=== PATIENT | female | born 1955 ===

== ENCOUNTER 2018-09-16 16:24 | Emergency (ER) | payer OTHER ==
--- NOTE | 2018-09-16 18:36 | UC ---
Abdominal Pain Female HPI - HPI Summary HPI Summary: 3 days of sharp right sided/right upper quadrant pain. Worse with movement and when taking a deep breath. No fever. No nausea. No diarrhea or urinary symptoms. Pain got worse today. - History of Current Complaint Chief Complaint: UCGeneralIllness Stated Complaint: SIDE PAIN Time Seen by Provider: 09/16/18 17:00 Hx Obtained From: Patient Hx Last Menstrual Period: post Onset/Duration: Sudden Onset, Lasting Days, Still Present Timing: Constant Severity Initially: Moderate Severity Currently: Moderate Pain Intensity: 5 Pain Scale Used: 0-10 Numeric Location: Discrete At: RUQ Radiates: Yes Radiates to: Flank Character: Colicy, Sharp Aggravating Factor(s): Movement, Deep Breaths Alleviating Factor(s): Nothing Associated Signs and Symptoms: Negative: Diaphoresis, Fever, Constipation, Blood in Stool, Urinary Symptoms, Decreased Appetite, Vaginal Bleeding, Vaginal Discharge, Nausea, Vomiting, Diarrhea Allergies/Adverse Reactions: Allergies Allergy/AdvReac Type Severity Reaction Status Date / Time No Known Allergies Allergy Verified 09/16/18 16:40 PMH/Surg Hx/FS Hx/Imm Hx Endocrine History: Hyperthyroidism - Surgical History Surgical History: Yes Surgery Procedure, Year, and Place: APPENDECTOMY - Family History Known Family History: Positive: Non-Contributory - Social History Alcohol Use: Daily Substance Use Type: None Smoking Status (MU): Never Smoked Tobacco Review of Systems All Other Systems Reviewed And Are Negative: Yes Constitutional: Positive: Negative Skin: Positive: Negative Respiratory: Positive: Negative Cardiovascular: Positive: Negative Gastrointestinal: Positive: Abdominal Pain Genitourinary: Positive: Negative Physical Exam Triage Information Reviewed: Yes Appearance: Well-Appearing, No Pain Distress, Well-Nourished Vital Signs: Initial Vital Signs Temp 98.6 F 09/16/18 16:35 Pulse 75 09/16/18 16:35 Resp 16 09/16/18 16:35 BP 132/79 09/16/18 16:35 Pulse Ox 100 09/16/18 16:35 Laboratory Tests 09/16/18 17:06 POC Urine Color Yellow POC Urine Clarity Clear POC Urine pH 5.5 POC Ur Specif [place] 1.010 POC Urine Protein Negative POC Ur Glucose (UA) Negative POC Urine Ketones Negative POC Urine Blood Negative POC Urine Nitrite Negative POC Urine Bilirubin Negative POC Urine Urobilinogen 0.2 POC U Leukocyte Esteras Negative Vital Signs Reviewed: Yes Eyes: Positive: Conjunctiva Clear ENT: Positive: Hearing grossly normal Neck: Positive: Supple Respiratory Exam: Normal Cardiovascular Exam: Normal Abdomen Description: Positive: Soft, CVA Tenderness (R) - EQUIVOCAL, Other: - MILDLY TENDER RUQ. NO REBOUND OR RIGIDITY. NEG BERRY'S. Negative: CVA Tenderness (L), Distended, Guarding Bowel Sounds: Positive: Present Musculoskeletal: Positive: No Edema Neurological: Positive: Alert Psychological: Positive: Normal Response To Family, Age Appropriate Behavior Skin: Negative: Rashes Diagnostics - Radiology CT ABD/PELVIS W/O CONTRAST Radiology Interpretation Completed By: Radiologist Summary of Radiographic Findings: NO EVIDENCE FOR ACUTE FINDING OR CAUSE FOR THE PATIENT'S ABDOMINAL PAIN IS SEEN. RIGHT KIDNEY IN PTOTIC POSITION. Abd Pain Female Course/Dx - Course Course Of Treatment: CT SCAN TODAY DOES NOT SHOW ANY DEFINITE CAUSE FOR PT'S ABDOMINAL PAIN HOWEVER THE RIGHT KIDNEY IS IN PTOTIC POSITION. PATIENT ADVISED THIS MAY OR MAY NOT BE CONTRIBUTING TO HER SYMPTOMS HOWEVER IT IS CERTAINLY A POSSIBILITY. SHE WILL FOLLOW-UP WITH UROLOGY FOR FURTHER EVALUATION OF THIS CONDITION. TO THE ER IF SYMPTOMS WORSEN. CBC AND CMP DRAWN TODAY. - Differential Dx/Diagnosis Provider Diagnosis: Nephroptosis Discharge - Sign-Out/Discharge Documenting (check all that apply): Patient Departure All imaging exams completed and their final reports reviewed: Yes - Discharge Plan Condition: Stable Disposition: HOME Referrals: Wade Scruggs MD [Primary Care Provider] - If Needed Bruce Almaguer MD [Medical Doctor] - 1 Week Additional Instructions: CT SCAN TODAY DOES NOT SHOW ANY DEFINITE CAUSE FOR YOUR ABDOMINAL PAIN HOWEVER THE RIGHT KIDNEY IS IN PTOTIC POSITION. THIS IS ALSO KNOWN A FLOATING KIDNEY. NEPHROPTOSIS (FLOATING KIDNEY) This is an abnormal condition in which the kidney drops down into the pelvis upon standing. It is more common in women than in men. It is believed to result from deficiency of supporting fasciae. Nephroptosis is asymptomatic in most patients. However, nephroptosis can be characterized by violent attacks of colicky flank pain, nausea, chills, hypertension, hematuria and proteinuria. Symptomatic patients may complain of sharp pains that radiate into the groin or a heaviness in the abdomen. Pain is typically relieved by lying down ( flank pain on standing that is relieved on lying down, the probable cause to pain is that movement of the kidney causes intermittent renal tract obstruction ). Surgery to stabilize the kidney is not recommended for asymptomatic patients but may be considered for select symptomatic patients. follow-up with urology is recommended. CALL UROLOGY TOMORROW TO SCHEDULE A FOLLOW-UP APPT. LABS TODAY INCLUDE BLOOD COUNT AND COMPLETE METABOLIC PANEL. GO TO ER WITHOUT FAIL IF YOU DEVELOP WORSENING PAIN, FEVER, NAUSEA/VOMITING, BLOOD IN THE URINE OR ANY OTHER CONCERNING SYMPTOMS. - Billing Disposition and Condition Condition: STABLE Disposition: Home
[2018-09-16 18:57] VITALS: BP 136/70
[2018-09-17 10:43] LABS: Albumin 4.2 g/dL (3.2-5.2); Calcium 9.5 mg/dL (8.6-10.3); Potassium 3.9 mmol/L (3.5-5.0); Total Bilirubin 0.4 mg/dL (0.2-1.0)
[2018-09-17 10:49] LABS: Albumin/Globulin Ratio 1.8 (1-3); BUN/Creatinine Ratio 18.2 (8-20); EGFR African American 78.5 (>60); EGFR Non-African American 64.9 (>60); Globulin 2.3 g/dL (2-4); Total Protein 6.5 g/dL (6.4-8.9)
[2018-09-17 15:20] LABS: ABS Basophils 0 10^3/ul (0-0.2); ABS Eosinophils 0.1 10^3/ul (0-0.6); ABS Lymphocytes 1.5 10^3/ul (1.0-4.8); ABS Monocytes 0.5 10^3/ul (0-0.8); ABS Neutrophils 4.6 10^3/ul (1.5-7.7); ABS Nucleated RBC 0 10^3/ul; Eosinophil % 1.3 %; Hematocrit 39 % (35-47); Lymphocyte % 22.4 %; Mean Corpuscular HGB Conc 33 g/dl (31-36); Mean Corpuscular Hemoglobin 29 pg (27-31); Mean Corpuscular Volume 86 fL (80-97); Mean Platelet Volume 9.2 fL (7.4-10.4); Nucleated Red Blood Cells % 0.1; Platelet Count 228 10^3/ul (150-450); Red Cell Distribution Width 14 % (10.5-15); White Blood Count 6.8 10^3/ul (3.5-10.8)
== END 2018-09-16 18:45 | disposition home or self-care (01) ==
LOC: UCEAST 16:24
DX: N28.83 Nephroptosis (principal); Z90.89 Acquired absence of other organs
CPT/HCPCS: 36415; 74176; 80053; 81003; 85025; 99211; G0463